=== PATIENT | male | born 1975 | race Caucasian/White ===

== ENCOUNTER → 2019-04-14 14:41 | Outpatient (CLI) | payer OTHER, SELFPAY ==
--- NOTE | 2019-04-14 14:49 | RAD_ITS ---
STUDY: X-RAY - RIGHT FOOT CLINICAL: Male, 44 years old. TECHNIQUE: view(s) of the foot. COMPARISON: None. FINDINGS: Normal talus, calcaneus, and tarsal bones. Normal visualized subtalar, talonavicular, calcaneocuboid, tarsal and tarsometatarsal articulations. Normal metatarsi. 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 Normal tibial and fibular sesamoid bones. Normal interphalangeal joint of the great toe. Normal phalanges of the great toe. Normal second through fifth metatarsophalangeal joints. Normal interphalangeal joints and phalanges of the lesser toes. The soft tissue structures are unremarkable. 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 Electronically Signed: Adi Murray, at 15:05 EDT Tel , Service support ,
== END ==
PROVIDERS: Family Provider Family Medicine; PCP Family Medicine; Referring Provider Nurse Practitioner Family; Visit Provider Nurse Practitioner Family
DX: S99.921A Unspecified injury of right foot, initial encounter (principal)
CPT/HCPCS: 73630

== ENCOUNTER → 2019-07-15 09:10 | Outpatient (CLI) | payer OTHER, SELFPAY ==
[2019-07-15 10:37] LABS: Anion Gap 9 (5-15); BUN 9 mg/dL (7-18); BUN/Creat Ratio 8.4 RATIO (10-20); Calcium,Total 8.5 mg/dL (8.5-10.1); Chloride 106 mmol/L (98-107); Creatinine, Serum 1.07 mg/dL (0.70-1.30); EST Glomerular Filtration Rate 80 mL/min (>60); Est Glom Filt Rate - Afr Amer 97 mL/min (>60); Glucose 135 mg/dL (74-106); Potassium 3.3 mmol/L (3.5-5.1); Sodium Level 140 mmol/L (136-145); Uric Acid 6.7 mg/dL (3.5-7.2)
[2019-07-15 10:38] LABS: Hemoglobin A1c 6.3 % (4.2-6.3)
== END ==
PROVIDERS: Family Provider Family Medicine; PCP Family Medicine; Referring Provider Family Medicine; Visit Provider Nurse Practitioner Family
DX: M19.079 Primary osteoarthritis, unspecified ankle and foot (principal); R73.01 Impaired fasting glucose; R03.0 Elevated blood-pressure reading, without diagnosis of hypertension
CPT/HCPCS: 36415; 80048; 83036; 84550

== ENCOUNTER → 2020-08-01 10:31 | Outpatient (CLI) | payer OTHER, SELFPAY ==
[2020-08-01 12:45] LABS: Absolute Lymphocyte Count 1.74 X10^3/uL (0.83-4.51); Absolute Neutrophil Count 7.5 X10^3/uL (2.0-7.7); Basophil# 0.07 X10^3/uL; Basophil% 0.7 % (0-1); Eosinophil# 0.02 X10^3/uL; Eosinophils% 0.2 % (0-5); Hematocrit 47.8 % (40-54); Hemoglobin 16.9 g/dL (13.0-16.5); Lymphocyte # 1.74 X10^3/ul (4.0); Lymphocyte % 16.9 % (19-41); Mean Corp Hgb Conc 35.4 g/dL (32-36); Mean Corpuscular Hgb 35.7 pg (27.0-32.0); Mean Corpuscular Volume 101.1 fL (80-94); Mean Platelet Vol. 9.3 fl (6.2-12.0); Monocyte# 0.91 X10^3/uL; Monocyte% 8.8 % (0-10); NRBC Flagged by Analyzer 0 % (0-5); Neutrophil # 7.53 X10^3/uL (2.7-7.7); Neutrophil % 72.9 % (47-70); Platelet Count 236 K/mm3 (150-450); RBC Distribution Width CV 13.2 % (11.6-14.6); RBC Distribution Width SD 49.7 fl (35.1-43.9); Red Blood Count 4.73 M/mm3 (4.6-6.2); White Blood Count 10.3 K/mm3 (4.4-11.0)
[2020-08-01 13:15] LABS: ALB/GLOB Ratio 1.1 RATIO (0.9-2.4); AST(SGOT) 108 U/L (15-37); Alanine Aminotransfer ALT/SGPT 98 U/L (16-61); Albumin, Serum 3.8 g/dL (3.2-5.0); Alkaline Phosphatase 102 U/L (45-117); Anion Gap 11 (5-15); BUN 10 mg/dL (7-18); BUN/Creat Ratio 9.3 RATIO (10-20); Calcium,Total 9.6 mg/dL (8.5-10.1); Chloride 101 mmol/L (98-107); Creatinine, Serum 1.07 mg/dL (0.70-1.30); EST Glomerular Filtration Rate 80 mL/min (>60); Est Glom Filt Rate - Afr Amer 97 mL/min (>60); Globulin 3.6 g/dL (2.2-4.2); Glucose 168 mg/dL (74-106); Potassium 2.7 mmol/L (3.5-5.1); Protein, Total 7.4 g/dL (6.4-8.2); Sodium Level 138 mmol/L (136-145)
== END ==
PROVIDERS: PCP Family Medicine; Referring Provider Registered Nurse; Visit Provider Registered Nurse
DX: Z00.00 Encounter for general adult medical examination without abnormal findings (principal)
CPT/HCPCS: 36415; 80053; 85025

== ENCOUNTER → 2020-08-10 09:45 | Outpatient (CLI) | payer OTHER, SELFPAY ==
--- NOTE | 2020-08-10 09:53 | US_ITS ---
STUDY: ABDOMINAL ULTRASOUND - RIGHT UPPER QUADRANT REASON FOR VISIT: Male, 45 years old ELEVATED LIVER ENZYMES TECHNIQUE: Ultrasound evaluation of the right upper quadrant was performed with real-time and static tim-scale imaging. TECHNICAL QUALITY: Adequate. COMPARISON: None. FINDINGS: Liver: The liver measures 21.4 cm. There is increased echogenicity consistent with fatty infiltration. The bile ducts are within normal limits. There is hepatic color flow. The direction of portal flow is hepatopetal. There is no demonstrated mass lesion. Gallbladder: Normal distended gallbladder. The gallbladder wall measures 2 mm. There is a negative sonographic Ocasio''s sign. There is no pericholecystic fluid. There are no gallstones. Common Bile Duct (C.B.D.): The common bile duct measures 3 mm. Pancreas: Normal size of the head, body and tail of the pancreas. There is normal echogenicity of the pancreas. There is no demonstrated pancreatic mass or cyst. Right Kidney: Normal size of the right kidney. The right kidney measures 12.2 cm. Normal renal cortex. The right cortex measures 1.5 cm. 1.4 cm cyst in the midsection right kidney. Another 1.2 cm cyst in the midsection right kidney. There is no right hydronephrosis. US/Liver IMPRESSION: Fatty infiltration of the liver. Electronically Signed: Frankie Mullins MD at 8:25 EDT Tel , Service support ,
== END ==
PROVIDERS: PCP Family Medicine; Referring Provider Registered Nurse; Visit Provider Registered Nurse
DX: R74.8 Abnormal levels of other serum enzymes (principal)
CPT/HCPCS: 76705